=== PATIENT | male | born 2000 | race African-American/Black ===

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

== ENCOUNTER 2019-10-27 14:15 | Emergency (ER) | payer MEDICAID ==
[~2019-10-27] VITALS: Ht 182.9 cm; Wt 72.0 kg
[2019-10-27] MEDS ORDERED: HYDROCODONE/ACETAMINOPHEN 5/325MG TABLET PO ONE (14:45)
[2019-10-27] MEDS ORDERED: BACITRACIN ZINC OINT UDPKT TOP ONE (16:00)
[2019-10-27] MEDS ORDERED: BACITRACIN 15GM TUBE TOP ONE (16:00)
[2019-10-27 16:23] VITALS: BP 145/94
== END 2019-10-27 16:24 | disposition home or self-care (01) ==
LOC: ER 14:32
DX: S62.652A Nondisplaced fracture of middle phalanx of right middle finger, initial encounter for closed fracture (principal); Z88.0 Allergy status to penicillin; W33.01XA Accidental discharge of shotgun, initial encounter; Y93.89 Activity, other specified; Y92.89 Other specified places as the place of occurrence of the external cause; Y99.8 Other external cause status
CPT/HCPCS: 29130; 73140; 99283

== ENCOUNTER 2024-05-27 23:09 | Emergency (ER) | payer MEDICAID ==
[~2024-05-27] VITALS: Ht 180.3 cm; Wt 78.0 kg
[2024-05-27 23:16] VITALS: TEMP 36.6; O2SAT 100
[2024-05-27 23:49] LABS: HEMATOCRIT. 45.9 % (42.0-52.0); HEMOGLOBIN. 15.3 g/dL (14.0-18.0); MEAN CORPUSCULAR HEMOGLOBIN 24.7 pg (28.0-32.0); MEAN CORPUSCULAR HGB CONC 33.3 g/dL (31.0-37.0); MEAN CORPUSCULAR VOLUME 74.3 fL (80.0-94.0); MEAN PLATELET VOLUME 9.2 fl (7.4-10.4); PLATELET 163 x1000/uL (130-400); RED BLOOD CELL COUNT 6.17 mill/uL (4.7-6.1); RED CELL DISTRIBUTION WIDTH 14.7 % (11.6-14.6); WHITE BLOOD COUNT 12.2 x1000/uL (4.5-11.0)
[2024-05-27 23:51] LABS: DIFFERENTIAL COMMENT 1
[2024-05-28 00:09] LABS: CHLORIDE 110 mEq/L (98-107); POTASSIUM 3.7 mEq/L (3.5-5.1); SODIUM 143 mEq/L (136-145)
[2024-05-28] MEDS: KETOROLAC 30MG/ML VIAL IV STA (00:09)
[2024-05-28] MEDS: ONDANSETRON HCL 4MG/2ML INJ IV STA (00:09)
[2024-05-28] MEDS: SODIUM CHLORIDE 0.9% 1,000 ML IV ONE (00:09)
[2024-05-28 00:11] LABS: CARBON DIOXIDE 21 mEq/L (21-32)
[2024-05-28 00:15] LABS: CREATININE 1.1 mg/dL (0.6-1.3)
[2024-05-28 00:16] LABS: GLUCOSE 159 mg/dL (70-105); UREA NITROGEN BLOOD 13 mg/dL (9-23)
[2024-05-28 00:17] LABS: ALANINE AMINOTRANSFERASE 24 IU/L (10-49); ALBUMIN 4.8 g/dL (3.2-4.8); ASPARTATE AMINOTRANSFERASE 20 IU/L (<34)
[2024-05-28 00:18] LABS: BILIRUBIN DIRECT 0.3 mg/dL (<=3.0); BILIRUBIN TOTAL 0.9 mg/dL (0.1-1.0); PROTEIN TOTAL 7.6 g/dL (6.0-8.3)
[2024-05-28] MEDS ORDERED: ONDA-239 PO (01:45)
[2024-05-28 02:06] VITALS: BP 155/36; PULSE 60; RESP 18; O2SAT 100
[2024-05-28 06:30] LABS: PLATELET ESTIMATE NORMAL
[2024-05-28 06:33] LABS: HYPOCHROMASIA 1+; MICROCYTOSIS 1+
== END 2024-05-28 02:06 | disposition home or self-care (01) ==
LOC: ER 23:09
DX: R11.2 Nausea with vomiting, unspecified (principal); R19.7 Diarrhea, unspecified; E86.0 Dehydration; Z88.0 Allergy status to penicillin
CPT/HCPCS: 99285; 80076; 80048; 83690; 85025; 36415; 74176; 96374; 96375; J1885; J2405; J7030